=== PATIENT | female | born 1960 | race Caucasian/White ===

== ENCOUNTER 2020-08-24 05:26 | Emergency (ER) | payer BC ==
[~2020-08-24] VITALS: Ht 170.2 cm; Wt 99.3 kg
[~2020-08-24 05:26] MED LIST: Atorvastatin PO; COQ-10100 MG PO; DIPHENOXYLATE-1 EACH PO; FLAXSEED1000 MG PO; LEXAPRO10 MG PO; MULTI-VITAMIN1 EACH PO; Probiotic PO
[2020-08-24] MEDS ORDERED: DIPHENHYDRAMINE HCL ELIX 12.5 MG/5 ML UDC ONE (06:13)
[2020-08-24] MEDS ORDERED: DIPHENHYDRAMINE HCL 25 MG CAP PO ONE (06:30)
[2020-08-24] MEDS ORDERED: DIPHENHYDRAMINE HCL ELIX 12.5 MG/5 ML UDC PO ONE (06:45)
[2020-08-24 07:34] LABS: BASOPHILS # (AUTO) 0.1 (0.0-0.1); BASOPHILS % 0.8 % (0.0-1.0); EOSINOPHILS # (AUTO) 1.5 (0.0-0.4); EOSINOPHILS % 9.1 % (0.0-6.0); HEMATOCRIT 37.2 % (34.2-44.1); HEMOGLOBIN 12.3 g/dL (12.0-16.0); LYMPHOCYTES # (AUTO) 3.8 (1.0-3.2); LYMPHOCYTES % 23.8 % (18.0-39.1); MEAN CORPUSCULAR HEMOGLOBIN 30.6 pg (28-32); MEAN CORPUSCULAR HGB CONC 33.1 g/dL (31-35); MEAN CORPUSCULAR VOLUME 92.5 fL (81-99); MONOCYTES # (AUTO) 0.9 (0.2-0.8); MONOCYTES % 5.7 % (4.4-11.3); NEUTROPHILS # (AUTO) 9.6 (2.1-6.9); NEUTROPHILS % 60.2 % (38.7-80.0); PLATELET COUNT 349 x10e3/uL (140-360); RED BLOOD COUNT 4.02 x10e6/uL (3.6-5.1); RED CELL DISTRIBUTION WIDTH 13.9 % (11.7-14.4)
[2020-08-24 07:40] LABS: GIANT PLATELETS FEW; LARGE PLATELETS FEW
[2020-08-24 07:44] LABS: ALANINE AMINOTRANSFERASE 16 IU/L (0-55); ALBUMIN 3.8 g/dL (3.5-5.0); ALBUMIN/GLOBULIN RATIO 1.3 (0.8-2.0); ALKALINE PHOSPHATASE 72 IU/L (40-150); ANION GAP 15.2 mmol/L (8-16); BLOOD UREA NITROGEN 23 mg/dL (7-26); BUN/CREATININE RATIO 28 (6-25); CALCIUM 8.6 mg/dL (8.4-10.2); CARBON DIOXIDE 21 mmol/L (22-29); CHLORIDE 107 mmol/L (98-107); CREATININE, SERUM 0.82 mg/dL (0.57-1.11); EST GLOMERULAR FILTRATION RATE > 60 ML/MIN (60-); GLUCOSE 94 mg/dL (74-118); POTASSIUM 4.2 mmol/L (3.5-5.1); SODIUM 139 mmol/L (136-145)
[2020-08-24 07:54] VITALS: BP 170/67
== END 2020-08-24 07:55 | disposition home or self-care (01) ==
LOC: ER 05:57
DX: R21 Rash and other nonspecific skin eruption (principal); T78.40XA Allergy, unspecified, initial encounter; J45.909 Unspecified asthma, uncomplicated; L65.9 Nonscarring hair loss, unspecified
CPT/HCPCS: 36415; 80053; 85025; 99283